=== PATIENT | female | born 1975 | race Asian ===

== ENCOUNTER 2021-05-15 17:29 | Emergency (ER) | payer OTHER, SELFPAY ==
[~2021-05-15] VITALS: Ht 165.1 cm; Wt 86.2 kg
[2021-05-15 17:45] VITALS: BP_SYST 133
--- NOTE | 2021-05-15 18:05 | NUR ---
Note elida in [facility], [place] - 05/15/21 at 1805 by [email or web address] Patient to bed to for evaluation. Side rails up.
--- NOTE | 2021-05-15 18:05 | NUR ---
Patient to ER bed 03 to gown for evaluation. Side rails up.
--- NOTE | 2021-05-15 18:31 | NUR ---
PT WALK IN A/OX4 , AMBULATORY, C/O BILATERAL KIDNEYS PAIN, LEFT KIDNEY PAIN RATES 9/10, RIGHT KIDANEY PAIN RATES 6/10 . ALSO PAIN IN LEFT LOW SIDE. PT HAS HX KIDNEYS STONES. ED MD SEEN PT GAVE ORDERS, URINE SENT TO LAB
--- NOTE | 2021-05-15 19:17 | NUR ---
REPORT GIVEN TO LEROY NAVARRO ALL QUESTIONS ANSWERED
[2021-05-15] MEDS ORDERED: HYDROcodone/ACETAMIN 10-325 MG TAB PO ONE (20:00)
--- NOTE | 2021-05-15 20:18 | NUR ---
PT PAIN 12/16. MEDICATION GIVEN PER MD ORDER.
--- NOTE | 2021-05-15 20:51 | NUR ---
URINE SAMPLE SENT TO LAB BY LEROY
[2021-05-15 21:20] LABS: BILIRUBIN,URINE NEGATIVE (NEGATIVE); BLOOD, URINE 2+ (NEGATIVE); COLOR,URINE YELLOW (YELLOW); GLUCOSE,URINE NEGATIVE (NEGATIVE); KETONES,URINE 1+ (NEGATIVE); LEUKOCYTE ESTERASE ,URINE NEGATIVE (NEGATIVE); NITRITE, URINE NEGATIVE (NEGATIVE); PH,URINE 6.5 (5.0-8.0); PROTEIN URINE NEGATIVE (NEGATIVE); UROBILINOGEN,URINE 0.2 (0.2-1.0)
[2021-05-15 21:51] LABS: CLARITY/URINE SLIGHTLY HAZY (CLEAR)
[2021-05-15 22:03] LABS: BACTERIA,URINE FEW /HPF (None Seen); WBC,URINE 0-3 /HPF (0-3)
[2021-05-15 22:04] LABS: MUCUS,URINE None Seen /LPF (None Seen)
[2021-05-15 22:20] LABS: CALCIUM 9.4 mg/dL (8.4-11.0); CREATININE 0.83 mg/dL (0.55-1.30); POTASSIUM 3.7 mmol/L (3.5-5.1)
[2021-05-15 22:23] LABS: BASOPHILS # (AUTO) 0.1 K/uL (0.0-0.2); BASOPHILS % (AUTO) 0.7 % (0.0-2.0); EOSINOPHILS # (AUTO) 0.3 K/uL (0.0-0.4); HEMATOCRIT 39.4 % (36-48); HEMOGLOBIN 13.3 g/dL (12.0-16.0); LYMPHOCYTES # (AUTO) 1.9 K/uL (1.0-5.5); LYMPHOCYTES % (AUTO) 14.7 % (20.5-51.5); MEAN CORPUSCULAR HEMOGLOBIN 29 pg (27-31); MEAN CORPUSCULAR HGB CONC 34 % (32-36); MEAN CORPUSCULAR VOLUME 84 fL (79.0-98.0); NEUTROPHILS # (AUTO) 9.7 K/uL (1.8-7.7); NEUTROPHILS % (AUTO) 74.6 % (40.0-70.0); PLATELET COUNT (AUTO) 326 K/uL (130-430); RED BLOOD CELL COUNT(AUTO) 4.68 MIL/uL (4.2-6.2); RED CELL DISTRIBUTION WIDTH 13.3 % (9.0-15.0); WHITE BLOOD COUNT (AUTO) 13.1 K/uL (4.8-10.8)
[2021-05-15 22:26] LABS: ALBUMIN 3.8 g/dL (3.4-4.8); TOTAL BILIRUBIN 0.6 mg/dL (0.0-1.0)
[2021-05-15] MEDS ORDERED: MORPHINE 4 MG INJ. 4 MG/ML VIAL IM ONE (23:45)
[2021-05-15] MEDS ORDERED: PROCHLORPERAZINE EDISYLATE 10 MG/2 ML VIAL IM ONE (23:45)
[2021-05-15] MEDS ORDERED: PROM25SU57 RC (23:52)
[2021-05-15] MEDS ORDERED: IBUP-1969 PO (23:52)
[2021-05-15] MEDS ORDERED: PHE25 PO (23:52)
[2021-05-15] MEDS ORDERED: HYDR-3927 PO (23:52)
[2021-05-16 00:08] VITALS: BP_SYST 114
--- NOTE | 2021-05-16 00:08 | NUR ---
Patient given written and verbal discharge instructions and verbalizes understanding. ER MD discussed with patient the results and treatment provided. Patient in stable condition. ID arm band removed. Rx of NORCO, IBUPROFEN, PHENERGAN given. Patient educated on pain management and to follow up with PMD. Pain Scale 0/10. Opportunity for questions provided and answered. Medication side effect fact sheet provided.
== END 2021-05-16 00:08 | disposition home or self-care (01) ==
LOC: SED 17:29
DX: N13.2 Hydronephrosis with renal and ureteral calculous obstruction (principal); Z88.2 Allergy status to sulfonamides; Z79.899 Other long term (current) drug therapy; Z20.822 Contact with and (suspected) exposure to COVID-19
CPT/HCPCS: 36415; 74176; 76376; 80053; 81000; 81025; 85025; 87426; 96372; 99284; J0780; J2270